=== PATIENT | female | born 1955 | race Caucasian/White ===

== ENCOUNTER 2017-10-14 11:24 | Outpatient (CLI) | payer SELFPAY | END 2017-10-14 11:25 | disposition home or self-care (01) | LOC: BICRAD 11:24 | PROVIDERS: ATTEND Chiropractor | DX: M25.551 Pain in right hip (principal); M47.896 Other spondylosis, lumbar region; I70.8 Atherosclerosis of other arteries | CPT/HCPCS: 72100 ==

== ENCOUNTER 2018-01-29 09:38 | Outpatient (CLI) | payer MEDICARE | END 2018-01-29 09:39 | disposition home or self-care (01) | LOC: BICMAMMO 09:38 | PROVIDERS: ATTEND Family Medicine | DX: Z12.31 Encounter for screening mammogram for malignant neoplasm of breast (principal); E28.39 Other primary ovarian failure; M81.0 Age-related osteoporosis without current pathological fracture | CPT/HCPCS: 77063; 77067; 77080 ==

== ENCOUNTER 2018-02-05 14:47 | Outpatient (CLI) | payer MEDICARE | END 2018-02-05 14:48 | disposition home or self-care (01) | LOC: BICMAMMO 14:47 | PROVIDERS: ATTEND Family Medicine | DX: R92.2 Inconclusive mammogram (principal) | CPT/HCPCS: 76642; 77065; G0279 ==